=== PATIENT | male | born 1980 | race Caucasian/White ===

== ENCOUNTER 2017-04-02 21:24 | Emergency (ER) | payer OTHER ==
[~2017-04-02] VITALS: Ht 167.6 cm; Wt 73.0 kg
[2017-04-02] MEDS ORDERED: OXYcodone/APAP 5/325MG TABLET ONE (21:35)
[2017-04-02 21:56] VITALS: BP 142/94
[2017-04-02] MEDS ORDERED: OXYcodone/APAP 5/325MG TABLET PO ONE (22:00)
== END 2017-04-02 23:14 | disposition home or self-care (01) ==
LOC: EDSEX 21:24 → ED 22:53
DX: M25.512 Pain in left shoulder (principal); M79.622 Pain in left upper arm
CPT/HCPCS: 99284